=== PATIENT | female | born 1980 | race Hispanic/Latino ===

== ENCOUNTER 2022-09-08 10:17 | Emergency (ER) | payer MEDICAID, SELFPAY ==
[~2022-09-08 10:17] MED LIST: Iopamidol 370 76% 100 ML VIAL ONE
[2022-09-08] MEDS ORDERED: Sodium Chloride 0.9% 1,000 ML ONE (10:49)
[2022-09-08] MEDS ORDERED: Vancomycin 1 GM VIAL ONE (10:49)
[2022-09-08] MEDS ORDERED: Sodium Chloride 0.9% 250 ML 250 ML ONE (10:49)
[2022-09-08 11:01] LABS: #Basophils 0.1 thou/uL (0.0-0.2); #Eosinphils 0.1 thou/uL (0.0-0.7); #Lymphocytes 1.6 thou/uL (1.20-3.40); #Monocytes 0.9 thou/uL (0.11-0.59); #Neutrophils 12.2 thou/uL (1.40-6.50); %Basophils 0.6 % (0.0-1.0); %Lymphocytes 10.5 % (21.0-51.0); %Monocytes 6.1 % (0.0-10.0); %Neutrophils 81.9 % (42.0-75.0); Hemoglobin 13.7 g/dL (12.0-16.0); Mean Corpuscular HGB CONC 32.7 g/dL (32.0-36.0); Mean Corpuscular Hemoglobin 27.8 pg (27.0-31.0); Mean Corpuscular Volume 85.1 fl (78.0-98.0); Mean Platelet Volume 6.6 fL (7.4-10.4); Platelet Count 330 10x3/uL (130-400); RBC Distribution Width 11.6 % (11.5-14.5); Red Blood Cell (RBC) Count 4.94 mill/uL (4.20-5.40); White Blood Cell (WBC) Count 14.9 10x3/uL (4.8-10.8)
[2022-09-08] MEDS ORDERED: Ketorolac Tromethamine 30 MG/ML VIAL ONE (11:04)
[2022-09-08 11:12] LABS: ALT (SGPT) 14 U/L (8-55); AST (SGOT) 10 U/L (5-34); Albumin 3.6 g/dL (3.5-5.0); Alkaline Phosphatase 128 U/L (40-110); Anion Gap 16 mmol/L (10-20); BUN (Urea Nitrogen) 7 mg/dL (7.0-18.7); Bilirubin, Total 0.6 mg/dL (0.2-1.2); Calc. Creatinine Clearance 0 mL/min (70-130); Calcium 8.7 mg/dL (7.8-10.44); Carbon Dioxide 20 mmol/L (22-29); Chloride 102 mmol/L (98-107); Estimated GFR 109; Globulin 4.2 g/dL (2.4-3.5); Glucose 277 mg/dL (70-105); Potassium 3.8 mmol/L (3.5-5.1); Protein, Total 7.8 g/dL (6.0-8.3); Sodium 134 mmol/L (136-145)
[2022-09-08] MEDS ORDERED: Piperacillin/Tazobactam 4.5 GM VIAL ONE (12:32)
[2022-09-08] MEDS ORDERED: Sodium Chloride 0.9% 100 ML ONE (12:34)
[2022-09-08] MEDS ORDERED: Lidocaine 1% w/Epinephrine 1:100K 20 ML VIAL ONE (13:06)
== END 2022-09-08 14:10 | disposition home or self-care (01) ==
LOC: MADERS 10:17
DX: L02.212 Cutaneous abscess of back [any part, except buttock and flank] (principal); K80.20 Calculus of gallbladder without cholecystitis without obstruction; E11.9 Type 2 diabetes mellitus without complications
CPT/HCPCS: 10060; 72132; 80053; 83605; 85025; 87070; 87077; 87186; 87205; 96365; 96366; 96375; J1885; J2543; J3370; J3490; J7050; Q9967